=== PATIENT | female | born 1965 | race Caucasian/White ===

== ENCOUNTER 2016-11-27 05:50 | Emergency (ER) | payer BC ==
[~2016-11-27] VITALS: Ht 162.6 cm; Wt 85.4 kg
[~2016-11-27 05:50] MED LIST: KEFLEX500 MG PO; VICODIN,LORT1 TABLET PO; ZOFRAN4 MG PO
[2016-11-27 05:53] VITALS: BP 177/127
== END 2016-11-27 06:28 | disposition left against medical advice (07) ==
LOC: EME 05:50
DX: R51 Headache (principal)